=== PATIENT | male | born 1980 | race Caucasian/White ===

== ENCOUNTER 2020-03-02 15:51 | Outpatient (CLI) | payer OTHER ==
--- NOTE | 2020-03-02 18:47 | RAD ---
CERVICAL SPINE 03/02/20 Three views show straightening of the cervical spine which could be due to muscle spasm. No fracture, dislocation, or soft tissue swelling was seen. The C1 to dens distance is normal. There is some slig ht disc space narrowing at C6-C7 of unknown significance. Otherwise, no degenerative change changes w ere seen. A linear metallic density seen below the mandible on the lateral view is presumed to be ext erior to the patient. IMPRESSION: 1. Straightening of the cervical spine. 2. Mild disc space narrowing at C6-C7. POS: HOME
== END 2020-03-02 15:52 | disposition home or self-care (01) ==
LOC: BURRAD 15:51
PROVIDERS: ATTEND Family Medicine
DX: M54.12 Radiculopathy, cervical region (principal); M48.02 Spinal stenosis, cervical region
CPT/HCPCS: 72040